=== PATIENT | female | born 1990 | race African-American/Black ===

== ENCOUNTER 2024-02-25 07:41 | Emergency (ER) | payer MEDICAID, OTHER ==
[~2024-02-25] VITALS: Ht 152.4 cm; Wt 84.7 kg
[2024-02-25 08:29] VITALS: BP 124/67; PULSE 73; RESP 20; TEMP 98.2; O2SAT 100
[2024-02-25] MEDS: LIDOCAINE 1% HCL (LOCAL ANESTH.) INJ 20ML MDV ID ONE (08:47)
[2024-02-25] MEDS ORDERED: CEPH500C PO (09:29)
[2024-02-25] MEDS: NEOMYCIN-BACITRACIN-POLYM UNITDOSE PKG TOP OINT TOP ONE (09:38)
== END 2024-02-25 09:50 | disposition home or self-care (01) ==
LOC: ER 07:41
DX: S51.812A Laceration without foreign body of left forearm, initial encounter (principal); W25.XXXA Contact with sharp glass, initial encounter; Y93.89 Activity, other specified; Y92.89 Other specified places as the place of occurrence of the external cause; Y99.8 Other external cause status
CPT/HCPCS: 12002; 99283; J2001